=== PATIENT | male | born 1950 | race Caucasian/White ===

== ENCOUNTER → 2023-05-11 13:07 | Outpatient (REF) | payer MEDICARE, SELFPAY ==
[2023-05-11 13:42] LABS: % Basophils 0.4 % (0-2); % Eosinophils 1.1 % (0-6); % Immature Granulocytes 1.1 % (0-0.5); % Lymphocytes 41.6 % (20.5-51.1); % Monocytes 19.7 % (1.7-9.3); % Neutrophils 36.1 % (42.2-75.2); Absolute Eosinophils 0.1 10^3/uL (0-0.7); Absolute Immature Granulocytes 0.1 10^3/uL (0-0.05); Absolute Monocytes 1.4 10^3/uL (0.1-0.6); Absolute Neutrophils 2.6 10^3/uL (1.4-6.5); Hematocrit 31.5 % (39.0-52.0); Hemoglobin 10.7 g/dL (13.0-18.0); Mean Corpuscular Hgb 35.7 pg (27.0-31.0); Mean Platelet Volume 11.4 fL (7.4-10.4); Nucleated Red Blood Cells % 2.5 % (-); Platelet Count 142 10^3/uL (130-400); Red Cell Dist. Width 17.6 % (11.5-14.5); White Blood Cell Count 7.3 10^3/uL (4.8-10.8)
[2023-05-11 14:58] LABS: Free T4 1.26 ng/dl (0.78-2.19)
[2023-05-11 15:12] LABS: TSH < 0.02 uIU/ml (0.47-4.68)
[2023-05-11 15:31] LABS: Vitamin B12 799 pg/ml (239-931)
== END ==
LOC: REG 13:07
PROVIDERS: ATTENDING PHYSICIAN Family Medicine
DX: E03.9 Hypothyroidism, unspecified (principal); D64.9 Anemia, unspecified; Z79.899 Other long term (current) drug therapy
CPT/HCPCS: 36415; 82607; 84439; 84443; 85025

== ENCOUNTER → 2023-05-13 14:12 | Outpatient (REF) | payer MEDICARE, SELFPAY | LOC: RAD 14:12 | PROVIDERS: ATTENDING PHYSICIAN Family Medicine | DX: I87.2 Venous insufficiency (chronic) (peripheral) (principal); I89.0 Lymphedema, not elsewhere classified | CPT/HCPCS: 93970 ==

== ENCOUNTER → 2023-06-08 06:44 | Outpatient (REF) | payer MEDICARE, SELFPAY | LOC: RAD 06:44 | PROVIDERS: ATTENDING PHYSICIAN Urology; FAMILY PHYSICIAN Family Medicine | DX: N40.1 Benign prostatic hyperplasia with lower urinary tract symptoms (principal); R31.0 Gross hematuria | CPT/HCPCS: 74178; Q9967 ==

== ENCOUNTER → 2023-06-24 12:46 | Outpatient (REF) | payer MEDICARE, SELFPAY ==
[2023-06-24 14:10] LABS: % Basophils 0.3 % (0-2); % Eosinophils 0.7 % (0-6); % Immature Granulocytes 1.3 % (0-0.5); % Lymphocytes 43.9 % (20.5-51.1); % Neutrophils 34.8 % (42.2-75.2); Absolute Eosinophils 0.1 10^3/uL (0-0.7); Absolute Immature Granulocytes 0.1 10^3/uL (0-0.05); Absolute Lymphocytes 2.9 10^3/uL (1.2-3.4); Absolute Monocytes 1.3 10^3/uL (0.1-0.6); Absolute Neutrophils 2.3 10^3/uL (1.4-6.5); Hematocrit 33.1 % (39.0-52.0); Mean Corp Hgb Conc. 33.2 g/dL (33.0-37.0); Mean Corpuscular Hgb 35.4 pg (27.0-31.0); Mean Corpuscular Volume 106.4 fL (80.0-94.0); Mean Platelet Volume 11.5 fL (7.4-10.4); Nucleated Red Blood Cells % 1.6 % (-); Platelet Count 117 10^3/uL (130-400); Red Blood Cell Count 3.11 10^6/uL (4.70-6.10); White Blood Cell Count 6.7 10^3/uL (4.8-10.8)
[2023-06-24 15:27] LABS: Iron 114 ug/dl (49-181)
[2023-06-24 16:01] LABS: Ferritin 81.4 ng/ml (17.9-464.0)
== END ==
LOC: REG 12:46
PROVIDERS: ATTENDING PHYSICIAN Family Medicine
DX: E03.9 Hypothyroidism, unspecified (principal); C91.40 Hairy cell leukemia not having achieved remission
CPT/HCPCS: 82728; 83540; 84443; 85025

== ENCOUNTER → 2024-02-29 14:11 | Outpatient (REF) | payer MEDICARE, SELFPAY ==
[2024-02-29 16:21] LABS: Free T4 1.29 ng/dl (0.78-2.19)
[2024-02-29 16:35] LABS: TSH 2.82 uIU/ml (0.47-4.68)
== END ==
LOC: REG 14:11
PROVIDERS: ATTENDING PHYSICIAN Family Medicine
DX: Z13.29 Encounter for screening for other suspected endocrine disorder (principal); E03.9 Hypothyroidism, unspecified
CPT/HCPCS: 36415; 84439; 84443

== ENCOUNTER → 2024-06-05 12:08 | Outpatient (REF) | payer MEDICARE, SELFPAY ==
[2024-06-05 13:29] LABS: Hematocrit 30.3 % (39.0-52.0); Hemoglobin 10.5 g/dL (13.0-18.0); Mean Corp Hgb Conc. 34.7 g/dL (33.0-37.0); Mean Platelet Volume 12.5 fL (7.4-10.4); Platelet Count 133 10^3/uL (130-400); Red Cell Dist. Width 18.6 % (11.5-14.5); White Blood Cell Count 7.4 10^3/uL (4.8-10.8)
[2024-06-05 16:38] LABS: Absolute Neutrophils -Man Diff 2.1 10^3/uL (1.4-6.5); Band Neutrophils 0 % (0-3); Eosinophils 1 % (0-6); Lymphocytes 69 % (20-51); Monocytes 1 % (2-9); Segmented Neutrophils 29 % (42-75)
[2024-06-05 16:39] LABS: Normal RBC Morphology Yes; Platelets Checked Yes; Total Cells Counted 100
== END ==
LOC: OIDL 12:08
PROVIDERS: ATTENDING PHYSICIAN Internal Medicine Hematology & Oncology
DX: C91.41 Hairy cell leukemia, in remission (principal); D64.9 Anemia, unspecified; D69.6 Thrombocytopenia, unspecified; I26.09 Other pulmonary embolism with acute cor pulmonale; I82.432 Acute embolism and thrombosis of left popliteal vein; R59.0 Localized enlarged lymph nodes
CPT/HCPCS: 36415; 85025

== ENCOUNTER → 2024-08-21 09:09 | Outpatient (REF) | payer MEDICARE, SELFPAY ==
[2024-08-21 09:17] LABS: Hematocrit 30.6 % (39.0-52.0); Hemoglobin 10.6 g/dL (13.0-18.0); Mean Corp Hgb Conc. 34.6 g/dL (33.0-37.0); Mean Corpuscular Volume 102.7 fL (80.0-94.0); Platelet Count 279 10^3/uL (130-400); Red Cell Dist. Width 18.1 % (11.5-14.5)
[2024-08-22 02:11] LABS: Hepatitis B Surface Antigen Negative (Negative)
== END ==
LOC: OIDL 09:09
PROVIDERS: ATTENDING PHYSICIAN Internal Medicine Hematology & Oncology
DX: C91.41 Hairy cell leukemia, in remission (principal); D64.9 Anemia, unspecified; D69.6 Thrombocytopenia, unspecified; I26.09 Other pulmonary embolism with acute cor pulmonale; I82.432 Acute embolism and thrombosis of left popliteal vein; R59.0 Localized enlarged lymph nodes
CPT/HCPCS: 85025; 86704; 87340

== ENCOUNTER → 2024-08-25 11:21 | Outpatient (REF) | payer MEDICARE, SELFPAY ==
[2024-08-25 13:16] LABS: Hematocrit 31.8 % (39.0-52.0); Hemoglobin 10.7 g/dL (13.0-18.0); Mean Corp Hgb Conc. 33.6 g/dL (33.0-37.0); Mean Corpuscular Volume 103.6 fL (80.0-94.0); Nucleated Red Blood Cells % 0.5 % (-); Platelet Count 338 10^3/uL (130-400); Red Cell Dist. Width 18.1 % (11.5-14.5)
[2024-08-25 13:41] LABS: ALT (SGPT) 25 U/L (0-50); AST (SGOT) 25 U/L (17-59); Albumin 3.8 g/dl (3.5-5.0); Alkaline Phosphatase 156 U/L (38-126); Blood Urea Nitrogen 17 mg/dl (9-20); Calcium 9.6 mg/dl (8.4-10.2); Carbon Dioxide 27 mmol/L (22-30); Chloride 106 mmol/L (98-107); Glucose 88 mg/dl (70-99); Potassium 4.4 mmol/L (3.5-5.1); Sodium 137 mmol/L (135-145); Total Protein 6.9 g/dl (6.3-8.2); eGFR > 60.00
== END ==
LOC: REG 11:21
PROVIDERS: ATTENDING PHYSICIAN Internal Medicine Hematology & Oncology; FAMILY PHYSICIAN Family Medicine
DX: C91.41 Hairy cell leukemia, in remission (principal); D64.9 Anemia, unspecified; D69.6 Thrombocytopenia, unspecified; I26.09 Other pulmonary embolism with acute cor pulmonale; I82.432 Acute embolism and thrombosis of left popliteal vein; R59.0 Localized enlarged lymph nodes
CPT/HCPCS: 36415; 80053; 85025

== ENCOUNTER → 2024-09-01 10:02 | Outpatient (REF) | payer MEDICARE, SELFPAY ==
[2024-09-01 11:22] LABS: Hematocrit 32.8 % (39.0-52.0); Hemoglobin 11.0 g/dL (13.0-18.0); Mean Corp Hgb Conc. 33.5 g/dL (33.0-37.0); Mean Corpuscular Volume 102.8 fL (80.0-94.0); Nucleated Red Blood Cells % 0.4 % (-); Platelet Count 360 10^3/uL (130-400); Red Cell Dist. Width 17.5 % (11.5-14.5)
[2024-09-01 11:53] LABS: ALT (SGPT) 36 U/L (0-50); AST (SGOT) 31 U/L (17-59); Albumin 3.6 g/dl (3.5-5.0); Alkaline Phosphatase 149 U/L (38-126); Blood Urea Nitrogen 18 mg/dl (9-20); Calcium 9.6 mg/dl (8.4-10.2); Carbon Dioxide 29 mmol/L (22-30); Chloride 105 mmol/L (98-107); Glucose 83 mg/dl (70-99); Potassium 4.2 mmol/L (3.5-5.1); Sodium 138 mmol/L (135-145); Total Protein 6.7 g/dl (6.3-8.2); eGFR > 60.00
== END ==
LOC: REG 10:02
PROVIDERS: ATTENDING PHYSICIAN Internal Medicine Hematology & Oncology; FAMILY PHYSICIAN Family Medicine
DX: C91.41 Hairy cell leukemia, in remission (principal); D64.9 Anemia, unspecified; D69.6 Thrombocytopenia, unspecified; I26.09 Other pulmonary embolism with acute cor pulmonale; I82.432 Acute embolism and thrombosis of left popliteal vein; R59.0 Localized enlarged lymph nodes
CPT/HCPCS: 36415; 80053; 85025

== ENCOUNTER → 2024-09-07 12:40 | Outpatient (REF) | payer MEDICARE, SELFPAY ==
[2024-09-07 14:29] LABS: Hematocrit 32.0 % (39.0-52.0); Hemoglobin 10.9 g/dL (13.0-18.0); Mean Corp Hgb Conc. 34.1 g/dL (33.0-37.0); Mean Corpuscular Volume 100.9 fL (80.0-94.0); Nucleated Red Blood Cells % 0 % (-); Platelet Count 315 10^3/uL (130-400); Red Cell Dist. Width 17.4 % (11.5-14.5)
[2024-09-07 14:41] LABS: Albumin 3.7 g/dl (3.5-5.0); Carbon Dioxide 29 mmol/L (22-30); Total Protein 6.8 g/dl (6.3-8.2); eGFR > 60.00
[2024-09-07 14:52] LABS: ALT (SGPT) 97 U/L (0-50); AST (SGOT) 83 U/L (17-59); Alkaline Phosphatase 173 U/L (38-126); Blood Urea Nitrogen 18 mg/dl (9-20); Calcium 10.0 mg/dl (8.4-10.2); Chloride 104 mmol/L (98-107); Glucose 82 mg/dl (70-99); Potassium 4.6 mmol/L (3.5-5.1); Sodium 137 mmol/L (135-145)
== END ==
LOC: REG 12:40
PROVIDERS: ATTENDING PHYSICIAN Internal Medicine Hematology & Oncology; FAMILY PHYSICIAN Family Medicine
DX: C91.41 Hairy cell leukemia, in remission (principal); D64.9 Anemia, unspecified; D69.6 Thrombocytopenia, unspecified; I26.09 Other pulmonary embolism with acute cor pulmonale; I82.432 Acute embolism and thrombosis of left popliteal vein; R59.0 Localized enlarged lymph nodes
CPT/HCPCS: 36415; 80053; 85025

== ENCOUNTER → 2024-09-15 08:57 | Outpatient (REF) | payer MEDICARE, SELFPAY ==
[2024-09-15 09:46] LABS: Hematocrit 33.2 % (39.0-52.0); Hemoglobin 11.4 g/dL (13.0-18.0); Mean Corp Hgb Conc. 34.3 g/dL (33.0-37.0); Mean Corpuscular Volume 99.4 fL (80.0-94.0); Platelet Count 309 10^3/uL (130-400); Red Cell Dist. Width 17.5 % (11.5-14.5)
[2024-09-15 10:10] LABS: Absolute Neutrophils -Man Diff 3.9 10^3/uL (1.4-6.5); Normal RBC Morphology Yes; Platelets Checked Yes; Total Cells Counted 100
[2024-09-15 13:42] LABS: ALT (SGPT) 63 U/L (0-50); AST (SGOT) 40 U/L (17-59); Albumin 3.7 g/dl (3.5-5.0); Alkaline Phosphatase 184 U/L (38-126); Blood Urea Nitrogen 15 mg/dl (9-20); Calcium 9.9 mg/dl (8.4-10.2); Carbon Dioxide 30 mmol/L (22-30); Chloride 104 mmol/L (98-107); Glucose 86 mg/dl (70-99); Potassium 4.6 mmol/L (3.5-5.1); Sodium 137 mmol/L (135-145); Total Protein 6.7 g/dl (6.3-8.2); eGFR > 60.00
== END ==
LOC: REG 08:57
PROVIDERS: ATTENDING PHYSICIAN Internal Medicine Hematology & Oncology; FAMILY PHYSICIAN Family Medicine
DX: C91.41 Hairy cell leukemia, in remission (principal); D64.9 Anemia, unspecified; D69.6 Thrombocytopenia, unspecified; I26.09 Other pulmonary embolism with acute cor pulmonale; I82.432 Acute embolism and thrombosis of left popliteal vein; R59.0 Localized enlarged lymph nodes
CPT/HCPCS: 36415; 80053; 85025

== ENCOUNTER → 2024-09-22 10:04 | Outpatient (REF) | payer MEDICARE, SELFPAY ==
[2024-09-22 10:41] LABS: Hematocrit 33.8 % (39.0-52.0); Hemoglobin 11.5 g/dL (13.0-18.0); Mean Corp Hgb Conc. 34.0 g/dL (33.0-37.0); Mean Corpuscular Volume 96.8 fL (80.0-94.0); Platelet Count 293 10^3/uL (130-400); Red Cell Dist. Width 16.8 % (11.5-14.5)
[2024-09-22 11:13] LABS: Absolute Neutrophils -Man Diff 3.9 10^3/uL (1.4-6.5); Anisocytosis 1+; Hypochromasia 1+; Normal RBC Morphology No; Platelets Checked Yes; Polychromasia 1+; Target Cells 1+
[2024-09-22 11:14] LABS: Acanthocytes 1+; Ovalocytes 1+; Schistocytes 1+; Total Cells Counted 100
[2024-09-22 12:26] LABS: ALT (SGPT) 71 U/L (0-50); AST (SGOT) 42 U/L (17-59); Albumin 3.8 g/dl (3.5-5.0); Alkaline Phosphatase 194 U/L (38-126); Blood Urea Nitrogen 22 mg/dl (9-20); Calcium 9.9 mg/dl (8.4-10.2); Carbon Dioxide 27 mmol/L (22-30); Chloride 105 mmol/L (98-107); Glucose 84 mg/dl (70-99); Potassium 4.5 mmol/L (3.5-5.1); Sodium 137 mmol/L (135-145); Total Protein 6.7 g/dl (6.3-8.2); eGFR > 60.00
== END ==
LOC: REG 10:04
PROVIDERS: ATTENDING PHYSICIAN Internal Medicine Hematology & Oncology; FAMILY PHYSICIAN Family Medicine
DX: C91.41 Hairy cell leukemia, in remission (principal); D64.9 Anemia, unspecified; D69.6 Thrombocytopenia, unspecified; I26.09 Other pulmonary embolism with acute cor pulmonale; I82.432 Acute embolism and thrombosis of left popliteal vein; R59.0 Localized enlarged lymph nodes
CPT/HCPCS: 36415; 80053; 85025

== ENCOUNTER → 2024-09-29 08:22 | Outpatient (REF) | payer MEDICARE, SELFPAY ==
[2024-09-29 09:43] LABS: Hematocrit 35.5 % (39.0-52.0); Hemoglobin 11.9 g/dL (13.0-18.0); Mean Corp Hgb Conc. 33.5 g/dL (33.0-37.0); Mean Corpuscular Volume 97.3 fL (80.0-94.0); Platelet Count 300 10^3/uL (130-400); Red Cell Dist. Width 17.2 % (11.5-14.5)
[2024-09-29 10:10] LABS: ALT (SGPT) 50 U/L (0-50); AST (SGOT) 32 U/L (17-59); Albumin 4.0 g/dl (3.5-5.0); Alkaline Phosphatase 180 U/L (38-126); Blood Urea Nitrogen 23 mg/dl (9-20); Calcium 10.1 mg/dl (8.4-10.2); Carbon Dioxide 27 mmol/L (22-30); Chloride 104 mmol/L (98-107); Glucose 80 mg/dl (70-99); Potassium 4.2 mmol/L (3.5-5.1); Sodium 138 mmol/L (135-145); Total Protein 7.0 g/dl (6.3-8.2); eGFR > 60.00
[2024-09-29 10:21] LABS: Absolute Neutrophils -Man Diff 3.8 10^3/uL (1.4-6.5); Normal RBC Morphology No; Platelets Checked Yes
[2024-09-29 10:22] LABS: Acanthocytes 1+; Anisocytosis 1+; Hypochromasia 1+; Ovalocytes FEW; Polychromasia 1+; Schistocytes 1+; Target Cells 1+; Total Cells Counted 100
== END ==
LOC: REG 08:22
PROVIDERS: ATTENDING PHYSICIAN Internal Medicine Hematology & Oncology; FAMILY PHYSICIAN Family Medicine
DX: C91.41 Hairy cell leukemia, in remission (principal); D64.9 Anemia, unspecified; D69.6 Thrombocytopenia, unspecified; I26.09 Other pulmonary embolism with acute cor pulmonale; I82.432 Acute embolism and thrombosis of left popliteal vein; R59.0 Localized enlarged lymph nodes
CPT/HCPCS: 36415; 80053; 85025

== ENCOUNTER → 2024-10-06 08:29 | Outpatient (REF) | payer MEDICARE, SELFPAY ==
[2024-10-06 09:13] LABS: Hematocrit 37.4 % (39.0-52.0); Hemoglobin 12.4 g/dL (13.0-18.0); Mean Corp Hgb Conc. 33.2 g/dL (33.0-37.0); Mean Corpuscular Volume 96.4 fL (80.0-94.0); Platelet Count 261 10^3/uL (130-400); Red Cell Dist. Width 16.4 % (11.5-14.5)
[2024-10-06 09:39] LABS: Absolute Neutrophils -Man Diff 4.8 10^3/uL (1.4-6.5); Normal RBC Morphology Yes; Platelets Checked Yes; Total Cells Counted 100
[2024-10-06 10:15] LABS: ALT (SGPT) 49 U/L (0-50); AST (SGOT) 40 U/L (17-59); Albumin 3.8 g/dl (3.5-5.0); Alkaline Phosphatase 205 U/L (38-126); Blood Urea Nitrogen 21 mg/dl (9-20); Calcium 10.1 mg/dl (8.4-10.2); Carbon Dioxide 29 mmol/L (22-30); Chloride 102 mmol/L (98-107); Glucose 87 mg/dl (70-99); Potassium 4.4 mmol/L (3.5-5.1); Sodium 134 mmol/L (135-145); Total Protein 6.8 g/dl (6.3-8.2); eGFR > 60.00
== END ==
LOC: REG 08:29
PROVIDERS: ATTENDING PHYSICIAN Internal Medicine Hematology & Oncology; FAMILY PHYSICIAN Family Medicine
DX: C91.41 Hairy cell leukemia, in remission (principal); D64.9 Anemia, unspecified; D69.6 Thrombocytopenia, unspecified; I26.09 Other pulmonary embolism with acute cor pulmonale; I82.432 Acute embolism and thrombosis of left popliteal vein; R59.0 Localized enlarged lymph nodes
CPT/HCPCS: 36415; 80053; 85025

== ENCOUNTER → 2024-12-22 15:10 | Outpatient (REF) | payer MEDICARE, SELFPAY ==
[2024-12-22 16:17] LABS: Hematocrit 38.1 % (39.0-52.0); Hemoglobin 12.4 g/dL (13.0-18.0); Mean Corp Hgb Conc. 32.5 g/dL (33.0-37.0); Mean Corpuscular Volume 93.2 fL (80.0-94.0); Nucleated Red Blood Cells % 0 % (-); Platelet Count 310 10^3/uL (130-400); Red Cell Dist. Width 18.8 % (11.5-14.5)
[2024-12-22 16:48] LABS: ALT (SGPT) 17 U/L (0-50); AST (SGOT) 23 U/L (17-59); Albumin 3.8 g/dl (3.5-5.0); Alkaline Phosphatase 132 U/L (38-126); Blood Urea Nitrogen 17 mg/dl (9-20); Calcium 9.9 mg/dl (8.4-10.2); Carbon Dioxide 31 mmol/L (22-30); Chloride 103 mmol/L (98-107); Glucose 87 mg/dl (70-99); Potassium 4.1 mmol/L (3.5-5.1); Sodium 138 mmol/L (135-145); Total Protein 6.9 g/dl (6.3-8.2); eGFR > 60.00
[2024-12-22 16:49] LABS: LDH 182 U/L (120-246)
== END ==
LOC: REG 15:10
PROVIDERS: ATTENDING PHYSICIAN Internal Medicine Hematology & Oncology; FAMILY PHYSICIAN Family Medicine
DX: C91.41 Hairy cell leukemia, in remission (principal); D64.9 Anemia, unspecified; D69.6 Thrombocytopenia, unspecified; I26.09 Other pulmonary embolism with acute cor pulmonale; I82.432 Acute embolism and thrombosis of left popliteal vein; R59.0 Localized enlarged lymph nodes
CPT/HCPCS: 36415; 80053; 83615; 85025